=== PATIENT | male | born 1960 | race American Indian/Alaskan Native ===

== ENCOUNTER 2020-09-16 16:37 | Emergency (ER) | payer SELFPAY ==
--- NOTE | 2020-09-16 16:45 | Event Note ---
ED Screening Note ED Screening Note: pt presents for left sided CP under the breast began yesterday worsened today sharp pain +diaphoretic +SOB +pleuritic CP pmhx HTN, has not taken medication in 1 1/2 weeks, is supposed to take amlodipine +marijuana This initial assessment/diagnostic orders/clinical plan/treatment(s) is/are subject to change based on patients health status, clinical progression and re- assessment by fellow clinical providers in the ED. Further treatment and workup at subsequent clinical providers discretion. Patient/guardian urged not to elope from the ED as their condition may be serious if not clinically assessed and managed. Initial orders include: cp protocol
--- NOTE | 2020-09-16 17:20 | XRay Report ---
CHEST 2 VIEWS INDICATION / CLINICAL INFORMATION: Chest Pain. COMPARISON: None available. FINDINGS: SUPPORT DEVICES: None. HEART / MEDIASTINUM: No significant abnormality. LUNGS / PLEURA: No significant pulmonary or pleural abnormality. No pneumothorax. ADDITIONAL FINDINGS: No significant additional findings. IMPRESSION: 1. No acute findings. Signer Name: Brian Rainey MD Signed: 09/16/2020 5:16 PM Workstation Name: [id number]
[2020-09-16 17:32] LABS: Basophils % (Auto) 0.9 % (0.0-1.8); Eosinophils # (Auto) 0.2 K/mm3 (0.0-0.4); Eosinophils % (Auto) 2.8 % (0.0-4.3); Hematocrit 46.9 % (35.5-45.6); Hemoglobin 15.5 gm/dl (11.8-15.2); Lymphocytes # (Auto) 1.8 K/mm3 (1.2-5.4); Mean Corpuscular HGB Conc 33 % (32-34); Mean Corpuscular Volume 93 fl (84-94); Monocytes # (Auto) 0.7 K/mm3 (0.0-0.8); Monocytes % (Auto) 11.7 % (0.0-7.3); Platelet Count 296 K/mm3 (140-440); Red Blood Count 5.06 M/mm3 (3.65-5.03); Red Cell Distribution Width 13.3 % (13.2-15.2)
[2020-09-16 17:45] LABS: INR 0.94 (0.87-1.13)
[2020-09-16 17:46] LABS: Partial Thromboplastin Time 32.2 Sec. (24.2-36.6)
[2020-09-16 17:51] LABS: Alanine Aminotransferase 19 units/L (7-56); Albumin 4.3 g/dL (3.9-5); BUN/Creatinine Ratio 8; Blood Urea Nitrogen 10 mg/dL (9-20); Calcium 10.1 mg/dL (8.4-10.2); Hemolysis Index 26
[2020-09-16] MEDS ORDERED: MORPHINE 4 MG/1 ML INJ IV ONE (18:20)
[2020-09-16] MEDS ORDERED: ONDANSETRON 4 MG/2 ML INJ IV ONE (18:20)
--- NOTE | 2020-09-16 19:11 | Emergency Department Report ---
ED General Adult HPI - General Chief complaint: Chest Pain Stated complaint: SOB/CHEST PAIN Time Seen by Provider: 09/16/20 16:42 Source: patient Mode of arrival: Ambulatory Limitations: No Limitations - History of Present Illness Initial comments: The patient presents to emergency department with chief complaint of substernal chest pain that started today. The patient is highly uncomfortable and states that when the chest pain started he was unable to walk because it was so intense. Patient is diaphoretic on my exam. He denies headache or abdominal pain. Patient's blood pressure is elevated. Patient states he has been out of his blood pressure medication. Patient takes Norvasc 10 mg daily Location: chest Radiation: non-radiation Severity scale (0 -10): 10 Quality: crushing, sharp Consistency: constant Improves with: none Worsens with: none Associated Symptoms: denies other symptoms Treatments Prior to Arrival: none - Related Data Previous Rx's Medication Instructions Recorded Last Taken Type Pantoprazole [Protonix] 40 mg PO QDAY #30 tablet 09/16/20 Unknown Rx Sucralfate [Carafate] 1 gm PO ACHS #180 udc 09/16/20 Unknown Rx amLODIPine 10 mg PO DAILY #30 tab 09/16/20 Unknown Rx Allergies Allergy/AdvReac Type Severity Reaction Status Date / Time No Known Allergies Allergy Unverified 09/16/20 16:39 ED Review of Systems ROS: Stated complaint: SOB/CHEST PAIN Other details as noted in HPI Constitutional: denies: chills, fever Eyes: denies: eye pain, eye discharge, vision change ENT: denies: ear pain, throat pain Respiratory: denies: cough, shortness of breath, wheezing Cardiovascular: chest pain. denies: palpitations Endocrine: no symptoms reported Gastrointestinal: denies: abdominal pain, nausea, diarrhea Genitourinary: denies: urgency, dysuria Musculoskeletal: denies: back pain, joint swelling, arthralgia Skin: denies: rash, lesions Neurological: denies: headache, weakness, paresthesias Psychiatric: denies: anxiety, depression Hematological/Lymphatic: denies: easy bleeding, easy bruising ED Past Medical Hx - Past Medical History Hx Hypertension: Yes - Surgical History Past Surgical History?: No - Social History Smoking Status: Never Smoker Substance Use Type: Marijuana - Medications Home Medications: Home Medications Medication Instructions Recorded Confirmed Last Taken Type Pantoprazole [Protonix] 40 mg PO QDAY #30 tablet 09/16/20 Unknown Rx Sucralfate [Carafate] 1 gm PO ACHS #180 udc 09/16/20 Unknown Rx amLODIPine 10 mg PO DAILY #30 tab 09/16/20 Unknown Rx ED Physical Exam - General Limitations: No Limitations General appearance: alert, in no apparent distress - Head Head exam: Present: atraumatic, normocephalic - Eye Eye exam: Present: normal appearance, PERRL - ENT ENT exam: Present: mucous membranes moist - Neck Neck exam: Present: normal inspection - Respiratory Respiratory exam: Present: normal lung sounds bilaterally. Absent: respiratory distress - Cardiovascular Cardiovascular Exam: Present: regular rate, normal rhythm. Absent: systolic murmur, diastolic murmur, rubs, gallop - GI/Abdominal GI/Abdominal exam: Present: soft, tenderness (ttp epigastric region), normal bowel sounds. Absent: distended - Rectal Rectal exam: Present: deferred - Extremities Exam Extremities exam: Present: normal inspection - Back Exam Back exam: Present: normal inspection - Neurological Exam Neurological exam: Present: alert, oriented X3, CN II-XII intact. Absent: motor sensory deficit - Psychiatric Psychiatric exam: Present: normal affect, normal mood - Skin Skin exam: Present: warm, dry, intact, normal color. Absent: rash ED Course Vital Signs 09/16/20 09/16/20 16:42 20:53 Pulse Rate 89 Respiratory 28 H Rate Blood Pressure 187/113 Blood Pressure 184/150 [Right] O2 Sat by Pulse 99 Oximetry ED Medical Decision Making - Lab Data Result diagrams: 09/16/20 16:55 09/16/20 16:55 Lab Results 09/16/20 09/16/20 09/16/20 Range/Units 16:55 16:55 16:55 WBC 5.6 (4.5-11.0) K/mm3 RBC 5.06 H (3.65-5.03) M/mm3 Hgb 15.5 H (11.8-15.2) gm/dl Hct 46.9 H (35.5-45.6) % MCV 93 (84-94) fl MCH 31 (28-32) pg MCHC 33 (32-34) % RDW 13.3 (13.2-15.2) % Plt Count 296 (140-440) K/mm3 Lymph % (Auto) 32.0 (13.4-35.0) % [place] % (Auto) 11.7 H (0.0-7.3) % Eos % (Auto) 2.8 (0.0-4.3) % Baso % (Auto) 0.9 (0.0-1.8) % Lymph # (Auto) 1.8 (1.2-5.4) K/mm3 [place] # (Auto) 0.7 (0.0-0.8) K/mm3 Eos # (Auto) 0.2 (0.0-0.4) K/mm3 Baso # (Auto) 0.0 (0.0-0.1) K/mm3 Seg Neutrophils % 52.6 (40.0-70.0) % Seg Neutrophils # 3.0 (1.8-7.7) K/mm3 PT 12.4 (12.2-14.9) Sec. INR 0.94 (0.87-1.13) APTT 32.2 (24.2-36.6) Sec. D-Dimer (0-234) ng/mlDDU Sodium 134 L (137-145) mmol/L Potassium 4.0 (3.6-5.0) mmol/L Chloride 96.9 L (98-107) mmol/L Carbon Dioxide 27 (22-30) mmol/L Anion Gap 14 mmol/L BUN 10 (9-20) mg/dL Creatinine 1.2 (0.8-1.3) mg/dL Estimated GFR > 60 ml/min BUN/Creatinine Ratio 8 % Glucose 124 H (75-100) mg/dL Calcium 10.1 (8.4-10.2) mg/dL Total Bilirubin 0.40 (0.1-1.2) mg/dL AST 27 (5-40) units/L ALT 19 (7-56) units/L Alkaline Phosphatase 95 (35-129) units/L Troponin T < 0.010 (0.00-0.029) ng/mL Total Protein 7.2 (6.3-8.2) g/dL Albumin 4.3 (3.9-5) g/dL Albumin/Globulin Ratio 1.5 % Lipase (13-60) units/L 09/16/20 09/16/20 09/16/20 Range/Units 18:44 18:44 Unknown WBC (4.5-11.0) K/mm3 RBC (3.65-5.03) M/mm3 Hgb (11.8-15.2) gm/dl Hct (35.5-45.6) % MCV (84-94) fl MCH (28-32) pg MCHC (32-34) % RDW (13.2-15.2) % Plt Count (140-440) K/mm3 Lymph % (Auto) (13.4-35.0) % [place] % (Auto) (0.0-7.3) % Eos % (Auto) (0.0-4.3) % Baso % (Auto) (0.0-1.8) % Lymph # (Auto) (1.2-5.4) K/mm3 [place] # (Auto) (0.0-0.8) K/mm3 Eos # (Auto) (0.0-0.4) K/mm3 Baso # (Auto) (0.0-0.1) K/mm3 Seg Neutrophils % (40.0-70.0) % Seg Neutrophils # (1.8-7.7) K/mm3 PT (12.2-14.9) Sec. INR (0.87-1.13) APTT (24.2-36.6) Sec. D-Dimer 211.55 (0-234) ng/mlDDU Sodium (137-145) mmol/L Potassium (3.6-5.0) mmol/L Chloride (98-107) mmol/L Carbon Dioxide (22-30) mmol/L Anion Gap mmol/L BUN (9-20) mg/dL Creatinine (0.8-1.3) mg/dL Estimated GFR ml/min BUN/Creatinine Ratio % Glucose (75-100) mg/dL Calcium (8.4-10.2) mg/dL Total Bilirubin (0.1-1.2) mg/dL AST (5-40) units/L ALT (7-56) units/L Alkaline Phosphatase (35-129) units/L Troponin T < 0.010 (0.00-0.029) ng/mL Total Protein (6.3-8.2) g/dL Albumin (3.9-5) g/dL Albumin/Globulin Ratio % Lipase 39 (13-60) units/L - EKG Data -: EKG Interpreted by Me EKG shows normal: sinus rhythm Rate: normal - Radiology Data Radiology results: report reviewed - Medical Decision Making CT angiograms were done for evaluation of dissection Patient given IV morphine for pain control Review of the patient's imaging does not show dissection Patient given IV Protonix and Carafate with significant improvement of his symptoms Patient also given IV hydralazine for his hypertension Discussed results with patient Critical care attestation.: If time is entered above; I have spent that time in minutes in the direct care of this critically ill patient, excluding procedure time. ED Disposition Clinical Impression: Nonspecific chest pain, Hypertension, Duodenitis Disposition: TO HOME OR SELFCARE Is pt being admited?: No Does the pt Need Aspirin: No Condition: Stable Instructions: Nonspecific Chest Pain, Adult, Duodenitis, Hypertension, Adult, Hypertension (ED) Prescriptions: amLODIPine 10 mg PO DAILY #30 tab Sucralfate [Carafate] 1 gm PO ACHS #180 udc Pantoprazole [Protonix] 40 mg PO QDAY #30 tablet Referrals: PRIMARY CARE, [Primary Care Provider] - 3-5 Days Time of Disposition: 21:46 Heart Score - HEART Score History: Slightly suspicious EKG: Non-specific Age: 45-65 Risk factors: 1-2 risk factors Troponin: < normal limit HEART Score: 3 - EKG Read Time Time EKG Completed: 00:00 EKG Read Time: 00:00
[2020-09-16] MEDS ORDERED: HYDROmorphone 1 MG/1 ML INJ IV ONE (19:35)
--- NOTE | 2020-09-16 20:29 | Cat Scan Report ---
CTA chest with contrast CT abdomen and pelvis with contrast INDICATION : CP, SOB, pleuritic CP, HTN urgency. TECHNIQUE: Axial imaging performed through the chest, with contrast bolus timing set to maximize opa cification of the pulmonary arteries and aorta. 3-plane MIP reformatted images were obtained. CT abdo men/pelvis also performed through the abdomen and pelvis without angiographic technique. All CT scans at this location are performed using CT dose reduction for ALARA by means of automated exposure cont rol. 100 mL of intravenous contrast administered. COMPARISON: None FINDINGS: CTA chest: Adequate contrast bolus timing with normal appearance of the thoracic aorta. No aneurysm o r dissection. Likewise the pulmonary arteries are well opacified and appear normal. Heart size is nor mal. No pathologic mediastinal adenopathy. The lungs are clear with mild emphysema in the apices. The re are degenerative changes in the spine with nothing acute. CT abdomen/pelvis: The liver, gallbladder, spleen, pancreas, and adrenals appear unremarkable. Tiny s imple bilateral renal cysts are present. There is mild wall thickening along the duodenum in the second segment and bulb but there is no bowel obstruction or free air suggesting perforation. The remainder the proximal GI tract is unremarkable. The urinary bladder is unremarkable. Prostate is slightly heterogeneous enlarged but otherwise unrema rkable. No pelvic free fluid or acute colonic abnormality. Mild colonic diverticulosis is present. Th ere is a small fat-containing umbilical hernia. IMPRESSION: 1. No acute vascular abnormality identified. Clear lungs. 2. Mild wall thickening involving the second segment of the duodenum and the duodenal bulb. No obstru ction, free air, or abscess. Consider ulcer disease or duodenitis in the differential. Signer Name: Neville Ortiz MD Signed: 09/16/2020 8:25 PM Workstation Name: [id number]
[2020-09-16] MEDS ORDERED: SUCRALFATE 1 GM/10 ML ORAL LIQD PO ONE (20:43)
[2020-09-16] MEDS ORDERED: PANTOPRAZOLE 40 MG INJ IV ONE (20:44)
[2020-09-16] MEDS ORDERED: hydrALAZINE 20 MG/1 ML INJ IV ONE (20:46)
[2020-09-16 20:54] VITALS: BP 187/113
[2020-09-16 21:57] LABS: Benzodiazepines Screen,Urine Negative; Cocaine Screen,Urine Negative; Methadone Screen,Urine Negative; Opiate Screen,Urine Negative
[2020-09-16 22:13] LABS: Amphetamine Screen,Urine Positive; Cannabinoid Screen,Urine Positive
--- NOTE | 2020-09-17 18:42 | Electrocardiograph Report ---
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
== END 2020-09-16 21:50 | disposition home or self-care (01) ==
LOC: ED 16:37
DX: K29.80 Duodenitis without bleeding (principal); R07.89 Other chest pain; I10 Essential (primary) hypertension; F12.10 Cannabis abuse, uncomplicated; Z79.899 Other long term (current) drug therapy
CPT/HCPCS: 36415; 71046; 71275; 74174; 80053; 80307; 83690; 84484; 85025; 85379; 85610; 85730; 93005; 96374; 96375; 99284; C9113; J0360; J1170; J2270; J2405; Q9967